=== PATIENT | male | born 1970 | race Two or more races ===

== ENCOUNTER 2020-08-12 02:42 | Emergency (ER) | payer SELFPAY ==
[~2020-08-12] VITALS: Ht 175.3 cm; Wt 95.3 kg
[2020-08-12 02:42] VITALS: BP 165/90
== END 2020-08-12 07:26 | disposition left against medical advice (07) ==
LOC: ER 02:42
DX: M79.644 Pain in right finger(s) (principal); R22.31 Localized swelling, mass and lump, right upper limb; Z53.21 Procedure and treatment not carried out due to patient leaving prior to being seen by health care provider
CPT/HCPCS: 73130

== ENCOUNTER 2020-08-12 11:37 | Emergency (ER) | payer SELFPAY ==
[~2020-08-12] VITALS: Ht 175.3 cm; Wt 95.3 kg
[2020-08-12 14:42] VITALS: BP 152/106
== END 2020-08-12 14:45 | disposition home or self-care (01) ==
LOC: ER 11:37
DX: L03.011 Cellulitis of right finger (principal); F17.210 Nicotine dependence, cigarettes, uncomplicated
CPT/HCPCS: 10060